=== PATIENT | male | born 2000 | race Two or more races ===

== ENCOUNTER 2019-02-19 00:48 | Emergency (ER) | payer OTHER, SELFPAY ==
[~2019-02-19] VITALS: Ht 170.2 cm; Wt 63.2 kg
[2019-02-19 00:48] VITALS: BP 128/68
--- NOTE | 2019-02-19 09:42 | REP ---
Clinical: Trauma. Technique: AP, lateral, bilateral oblique views of the right hand . Findings: The osseous structures and joint spaces are intact and normal. There is no evidence for acute fracture or dislocation. Surrounding soft tissues are unremarkable. No subcutaneous emphysema or radiodense foreign body. Impression: Normal right hand series. No acute fracture or dislocation. Electronically Signed by Segundo Hemphill MD 02/19/2019 09:33 A
== END 2019-02-19 04:49 | disposition left against medical advice (07) ==
LOC: M ED 00:48
DX: Z53.29 Procedure and treatment not carried out because of patient's decision for other reasons (principal)

== ENCOUNTER → 2019-02-19 | Outpatient (CLI) | payer SELFPAY ==
--- NOTE | 2019-02-19 15:14 | REP ---
RIGHT WRIST, FOUR VIEWS: There is no evidence of an acute fracture, dislocation or intrinsic bone disease. IMPRESSION: No fracture or dislocation. Electronically Signed by Carlos Macias MD 02/21/2019 10:20 A
--- NOTE | 2019-02-19 15:15 | REP ---
RIGHT HAND, FOUR VIEWS: There is no evidence of an acute fracture, dislocation or intrinsic bone disease. IMPRESSION: No fracture or dislocation. Electronically Signed by Carlos Macias MD 02/21/2019 10:20 A
== END ==
LOC: M LRY 13:37
PROVIDERS: ATTEND Physician Assistant
DX: M79.641 Pain in right hand (principal); M25.531 Pain in right wrist

== ENCOUNTER → 2019-10-23 | Outpatient (REF) | payer OTHER ==
[2019-10-23 12:08] LABS: HEMATOCRIT 46.3 % (42.0-52.0); HEMOGLOBIN 15.7 g/dl (13.5-17.5); MEAN CORPUSCULAR HEMOGLOBIN 30.4 pg (27.0-33.0); MEAN CORPUSCULAR HGB CONC 33.9 g/dl (32.0-36.5); MEAN CORPUSCULAR VOLUME 89.7 fl (80.0-96.0); PLATELET COUNT, AUTOMATED 286 10^3/uL (150-450); RED BLOOD COUNT 5.16 10^6/uL (4.30-6.10); WHITE BLOOD COUNT 8.9 10^3/uL (4.0-10.0)
[2019-10-23 12:27] LABS: BLOOD UREA NITROGEN 13 MG/DL (7-18); CALCIUM LEVEL 9.3 MG/DL (8.5-10.1); CARBON DIOXIDE LEVEL 30 MEQ/L (21-32); CHLORIDE LEVEL 103 MEQ/L (98-107); CHOLESTEROL LEVEL 124 MG/DL (<200); CHOLESTEROL RISK RATIO 3.542 (<5); CREATININE FOR GFR 1.13 MG/DL (0.70-1.30); FREE T4 1.08 NG/DL (0.76-1.46); GLOMERULAR FILTRATION RATE > 60.0 (>60); GLUCOSE, FASTING 82 MG/DL (70-100); HDL CHOLESTEROL 35 MG/DL (>40); LDL CHOLESTEROL 72 MG/DL (<100); NON-HDL-C 89 MG/DL; SODIUM LEVEL 139 MEQ/L (136-145); TRIGLYCERIDES LEVEL 86 MG/DL (<150)
[2019-10-23 13:02] LABS: HIV 1&2 SCREEN CENTAUR NEGATIVE (NEGATIVE)
[2019-10-23 13:31] LABS: CHLAMYDIA DNA AMPLIFICATION NEGATIVE (NEGATIVE); GC DNA AMPLIFICATION NEGATIVE (NEGATIVE)
[2019-10-23 14:26] LABS: HEMOGLOBIN A1c 5.5 %
== END ==
LOC: M SFHCPLAZ 10:16
PROVIDERS: ATTEND Family Medicine
DX: Z11.3 Encounter for screening for infections with a predominantly sexual mode of transmission (principal); Z13.1 Encounter for screening for diabetes mellitus; Z13.220 Encounter for screening for lipoid disorders; R07.89 Other chest pain

== ENCOUNTER 2020-11-24 12:48 | Emergency (ER) | payer OTHER ==
[~2020-11-24] VITALS: Ht 170.2 cm; Wt 63.8 kg
[2020-11-24] MEDS ORDERED: NS 1,000 ML IV SCH (13:00)
[2020-11-24 13:44] LABS: BASO % 0.3 % (0.0-1.0); EOS # 0.1 10^3/uL (0.0-0.5); EOS % 0.6 % (0.0-3.0); HEMATOCRIT 41.6 % (42.0-52.0); HEMOGLOBIN 13.8 g/dl (13.5-17.5); LYMPH # 2.3 10^3/uL (1.5-5.0); MEAN CORPUSCULAR HEMOGLOBIN 29.9 pg (27.0-33.0); MEAN CORPUSCULAR HGB CONC 33.2 g/dl (32.0-36.5); MEAN CORPUSCULAR VOLUME 90.2 fl (80.0-96.0); MONO # 0.8 10^3/uL (0.0-0.8); NEUTROPHILS # 8.7 10^3/uL (1.5-8.5); NEUTROPHILS % 72.8 % (36.0-66.0); PLATELET COUNT, AUTOMATED 260 10^3/uL (150-450); RED BLOOD COUNT 4.61 10^6/uL (4.30-6.10); WHITE BLOOD COUNT 11.9 10^3/uL (4.0-10.0)
[2020-11-24 13:49] LABS: VENOUS BASE EXCESS -3.2 (-2.0-2.0); VENOUS HCO3 21.6 MEQ/L (23.0-27.0); VENOUS PARTIAL PRESSURE CO2 38.2 mmHg (38.0-50.0); VENOUS PARTIAL PRESSURE O2 148.7 mmHg (30.0-50.0); VENOUS PH 7.371 UNITS (7.330-7.430); VENOUS STANDARD HCO3 21.9 MEQ/L; VENOUS TOTAL CO2 22.8 MEQ/L (24.0-28.0)
[2020-11-24 14:30] LABS: AMPHETAMINES LEVEL URINE NEGATIVE (NEGATIVE); BARBITURATES URINE NEGATIVE (NEGATIVE); BENZODIAZEPINES URINE POSITIVE (NEGATIVE); CANNABINOIDS URINE POSITIVE (NEGATIVE); COCAINE METABOLITE URINE NEGATIVE (NEGATIVE); METHADONE URINE NEGATIVE (NEGATIVE); OPIATES URINE NEGATIVE (NEGATIVE); PHENCYCLIDINE URINE NEGATIVE (NEGATIVE)
[2020-11-24 15:12] LABS: ACETAMINOPHEN LEVEL < 2.0 UG/ML (10.0-30.0); ALBUMIN 4.2 GM/DL (3.2-5.2); ALT/SGPT 20 U/L (12-78); BILIRUBIN,DIRECT 0.3 MG/DL (0.0-0.2); BILIRUBIN,TOTAL 1.2 MG/DL (0.2-1.0); BLOOD UREA NITROGEN 11 MG/DL (7-18); CALCIUM LEVEL 9.2 MG/DL (8.5-10.1); CARBON DIOXIDE LEVEL 25 MEQ/L (21-32); CHLORIDE LEVEL 106 MEQ/L (98-107); CPK CREATINE PHOSPHOKINASE 849 U/L (39-308); CREATININE FOR GFR 0.78 MG/DL (0.70-1.30); ETHYL ALCOHOL (ETHANOL) < 0.003 % (0.000-0.010); GLOMERULAR FILTRATION RATE > 60.0 (>60); GLUCOSE, FASTING 84 MG/DL (70-100); POTASSIUM SERUM 3.9 MEQ/L (3.5-5.1); SALICYLATE LEVEL < 1.7 MG/DL (5.0-30.0); SODIUM LEVEL 142 MEQ/L (136-145)
[2020-11-24 20:05] VITALS: BP 142/64
--- NOTE | 2020-11-25 07:55 | ECGEPIP ---
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
== END 2020-11-24 20:29 | disposition home or self-care (01) ==
LOC: EDBD 12:48 → M ED 12:48
DX: F19.10 Other psychoactive substance abuse, uncomplicated (principal); F17.200 Nicotine dependence, unspecified, uncomplicated

== ENCOUNTER 2021-04-18 03:34 | Emergency (ER) | payer OTHER ==
[~2021-04-18] VITALS: Ht 170.2 cm; Wt 70.9 kg
[2021-04-18] MEDS ORDERED: LIDOCAINE 2% 5ML JELLY UROJET TOP ONE (04:15)
[2021-04-18 04:21] LABS: BASO % 0.4 % (0.0-1.0); EOS % 0.4 % (0.0-3.0); HEMATOCRIT 49.1 % (42.0-52.0); HEMOGLOBIN 16.6 g/dl (13.5-17.5); LYMPH # 2.7 10^3/uL (1.5-5.0); LYMPH % 29.6 % (24.0-44.0); MEAN CORPUSCULAR HEMOGLOBIN 30.5 pg (27.0-33.0); MEAN CORPUSCULAR HGB CONC 33.8 g/dl (32.0-36.5); MEAN CORPUSCULAR VOLUME 90.1 fl (80.0-96.0); MONO # 0.5 10^3/uL (0.0-0.8); MONO % 5.4 % (2.0-8.0); NEUTROPHILS # 5.7 10^3/uL (1.5-8.5); NEUTROPHILS % 63.9 % (36.0-66.0); PLATELET COUNT, AUTOMATED 312 10^3/uL (150-450); RED BLOOD COUNT 5.45 10^6/uL (4.30-6.10)
[2021-04-18 04:50] LABS: OSMOLALITY SERUM 365 MOSM/KG (275-295)
[2021-04-18 04:58] LABS: AMPHETAMINES LEVEL URINE NEGATIVE (NEGATIVE); BARBITURATES URINE NEGATIVE (NEGATIVE); BENZODIAZEPINES URINE NEGATIVE (NEGATIVE); CANNABINOIDS URINE POSITIVE (NEGATIVE); COCAINE METABOLITE URINE NEGATIVE (NEGATIVE); METHADONE URINE NEGATIVE (NEGATIVE); OPIATES URINE NEGATIVE (NEGATIVE); PHENCYCLIDINE URINE NEGATIVE (NEGATIVE)
[2021-04-18 05:18] LABS: ACETAMINOPHEN LEVEL < 2.0 UG/ML (10.0-30.0); ALBUMIN 4.5 GM/DL (3.2-5.2); ALT/SGPT 28 U/L (12-78); BILIRUBIN,DIRECT 0.2 MG/DL (0.0-0.2); BILIRUBIN,TOTAL 0.9 MG/DL (0.2-1.0); BLOOD UREA NITROGEN 6 MG/DL (7-18); CALCIUM LEVEL 9.2 MG/DL (8.5-10.1); CARBON DIOXIDE LEVEL 28 MEQ/L (21-32); CHLORIDE LEVEL 110 MEQ/L (98-107); CK-MB VALUE MASS 3.9 NG/ML (<3.6); CPK CREATINE PHOSPHOKINASE 522 U/L (39-308); CREATININE FOR GFR 0.99 MG/DL (0.70-1.30); ETHYL ALCOHOL (ETHANOL) 0.265 % (0.000-0.010); GLOMERULAR FILTRATION RATE > 60.0 (>60); GLUCOSE, FASTING 88 MG/DL (70-100); MB/CK RELATIVE INDEX 0.75 (< OR =4); POTASSIUM SERUM 4.3 MEQ/L (3.5-5.1); SALICYLATE LEVEL < 1.7 MG/DL (5.0-30.0); SODIUM LEVEL 144 MEQ/L (136-145); TOTAL PROTEIN 7.9 GM/DL (6.4-8.2); TROPONIN I < 0.02 NG/ML (< 0.10)
--- NOTE | 2021-04-18 05:32 | REPVR ---
PROCEDURE INFORMATION: Exam: XR Chest Exam date and time: 04/18/2021 5:03 AM Age: 21 years old Clinical indication: Altered mental status TECHNIQUE: Imaging protocol: XR of the chest. Views: 1 view. COMPARISON: No relevant prior studies available. FINDINGS: Lungs: Unremarkable. No consolidation. Pleural spaces: Unremarkable. No pleural effusion. No pneumothorax. Heart/Mediastinum: Unremarkable. No cardiomegaly. Bones/joints: Unremarkable. IMPRESSION: No acute infiltrates. Electronically signed by: Magen Jorge On 04/18/2021 05:32:42 AM
[2021-04-18] MEDS ORDERED: NS IV ONE (05:45)
--- NOTE | 2021-04-18 05:51 | REPVR ---
PROCEDURE INFORMATION: Exam: CT Head Without Contrast Exam date and time: 04/18/2021 5:16 AM Age: 21 years old Clinical indication: Altered mental status/memory loss TECHNIQUE: Imaging protocol: Computed tomography of the head without contrast. Radiation optimization: All CT scans at this facility use at least one of these dose optimization techniques: automated exposure control; mA and/or kV adjustment per patient size (includes targeted exams where dose is matched to clinical indication); or iterative reconstruction. COMPARISON: No relevant prior studies available. FINDINGS: Brain: Normal. No hemorrhage. Unremarkable white matter. No mass effect. Cerebral ventricles: No ventriculomegaly. Paranasal sinuses: Visualized sinuses are unremarkable. No fluid levels. Mastoid air cells: Visualized mastoid air cells are well aerated. Bones/joints: Unremarkable. No acute fracture. Soft tissues: Unremarkable. IMPRESSION: No acute intracranial abnormality. Electronically signed by: Ike Naik On 04/18/2021 05:51:03 AM
--- NOTE | 2021-04-18 05:53 | REPVR ---
PROCEDURE INFORMATION: Exam: CT Cervical Spine Without Contrast Exam date and time: 04/18/2021 5:16 AM Age: 21 years old Clinical indication: Other: AMS; Additional info: Altered mental status TECHNIQUE: Imaging protocol: Computed tomography images of the cervical spine without contrast. Radiation optimization: All CT scans at this facility use at least one of these dose optimization techniques: automated exposure control; mA and/or kV adjustment per patient size (includes targeted exams where dose is matched to clinical indication); or iterative reconstruction. COMPARISON: CR PORTABLE CHEST X-RAY 04/18/2021 4:56 AM FINDINGS: Bones/joints: No acute fracture. Normal alignment. Discs/Spinal canal/Neural foramina: No significant disc protrusion. No severe spinal canal stenosis. No significant neural foraminal narrowing. Lungs: Lung apices are normal. Soft tissues: Unremarkable. IMPRESSION: No acute findings. Electronically signed by: Ike Naik On 04/18/2021 05:53:07 AM
--- NOTE | 2021-04-18 05:56 | REPVR ---
PROCEDURE INFORMATION: Exam: CT Maxillofacial Without Contrast Exam date and time: 04/18/2021 5:16 AM Age: 21 years old Clinical indication: Other: AMS w/ facial trauma; Additional info: Altered mental status, facial trauma TECHNIQUE: Imaging protocol: Computed tomography images of the face without contrast. Radiation optimization: All CT scans at this facility use at least one of these dose optimization techniques: automated exposure control; mA and/or kV adjustment per patient size (includes targeted exams where dose is matched to clinical indication); or iterative reconstruction. COMPARISON: No relevant prior studies available. FINDINGS: Orbital cavity: Orbits are normal. Globes are unremarkable. Bones/joints: No acute fracture. Paranasal sinuses: Minimal bilateral maxillary sinuses mucosal thickening seen. Soft tissues: Unremarkable. Dental: There is a large periapical lucency at the tip of the left 1st maxillary molar tooth. IMPRESSION: 1. No CT evidence of acute traumatic facial bone fracture. 2. Left 1st maxillary molar tooth periapical lucency suggestive of periodontal disease. Electronically signed by: Ike Naik On 04/18/2021 05:56:06 AM
[2021-04-18] MEDS ORDERED: ONDANSETRON 4MG/2ML VIAL IV ONE (09:25)
[2021-04-18 10:45] VITALS: BP 116/69
--- NOTE | 2021-04-19 16:42 | ECGEPIP ---
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
== END 2021-04-18 11:10 | disposition home or self-care (01) ==
LOC: M ED 03:34
DX: F10.129 Alcohol abuse with intoxication, unspecified (principal); F17.200 Nicotine dependence, unspecified, uncomplicated
CPT/HCPCS: 51701; 70450; 70486; 71045; 72125; 80048; 80076; 80143; 80307; 81001; 82077; 82140; 82550; 82553; 83605; 83930; 84443; 85025; 93005; 93041; 94760; 96361; 96374; 99285; J2405

== ENCOUNTER 2022-07-07 12:00 | Emergency (ER) | payer OTHER ==
[~2022-07-07] VITALS: Ht 170.2 cm; Wt 63.2 kg
[2022-07-07] MEDS ORDERED: ACETAMINOPHEN TAB 650MG DOSE (2X325MG) PO ONE (12:55)
[2022-07-07 13:18] LABS: BASO # 0.1 10^3/uL (0.0-0.2); BASO % 0.9 % (0.0-1.0); EOS # 0.1 10^3/uL (0.0-0.5); EOS % 1.1 % (0.0-3.0); HEMATOCRIT 39.9 % (42.0-52.0); HEMOGLOBIN 13.2 g/dl (13.5-17.5); LYMPH # 1.8 10^3/uL (1.5-5.0); LYMPH % 28.4 % (24.0-44.0); MEAN CORPUSCULAR HEMOGLOBIN 29.8 pg (27.0-33.0); MEAN CORPUSCULAR HGB CONC 33.1 g/dl (32.0-36.5); MEAN CORPUSCULAR VOLUME 90.1 fl (80.0-96.0); MONO # 0.7 10^3/uL (0.0-0.8); MONO % 10.1 % (2.0-8.0); NEUTROPHILS # 3.8 10^3/uL (1.5-8.5); NEUTROPHILS % 59.2 % (36.0-66.0); PLATELET COUNT, AUTOMATED 272 10^3/uL (150-450); RED BLOOD COUNT 4.43 10^6/uL (4.30-6.10); WHITE BLOOD COUNT 6.4 10^3/uL (4.0-10.0)
[2022-07-07] MEDS ORDERED: ISOVUE-370 76% 100ML VIAL As Ordered ONE (13:27)
[2022-07-07 14:31] VITALS: BP 116/55
== END 2022-07-07 14:41 | disposition home or self-care (01) ==
LOC: M ED 12:00
DX: S20.219A Contusion of unspecified front wall of thorax, initial encounter (principal); V43.62XA Car passenger injured in collision with other type car in traffic accident, initial encounter; F17.200 Nicotine dependence, unspecified, uncomplicated

== ENCOUNTER 2023-06-15 18:15 | Emergency (ER) | payer OTHER ==
[~2023-06-15] VITALS: Ht 167.6 cm; Wt 64.2 kg
[2023-06-15] MEDS ORDERED: LEXA1TAB (18:25)
[2023-06-15] MEDS ORDERED: BOOSTRIX VACCINE (TETANUS/DIPHTH/ACEL. PERTUSSIS) 0.5ML SYR IM.IMMUN ONE (18:40)
[2023-06-15] MEDS ORDERED: CEPHALEXIN 500 MG CAP PO ONE (19:30)
[2023-06-15] MEDS ORDERED: CEPH500C PO (19:32)
[2023-06-15 19:56] VITALS: BP 143/95; TEMP 97.6; O2SAT 98
== END 2023-06-15 19:57 | disposition home or self-care (01) ==
LOC: M ED 18:15
DX: S01.81XA Laceration without foreign body of other part of head, initial encounter (principal); S60.221A Contusion of right hand, initial encounter; Y04.0XXA Assault by unarmed brawl or fight, initial encounter; F41.9 Anxiety disorder, unspecified; F10.10 Alcohol abuse, uncomplicated; F32.A Depression, unspecified; Z79.899 Other long term (current) drug therapy

== ENCOUNTER → 2024-04-19 | Outpatient (CLI) | payer OTHER ==
[~2024-04-19] MED LIST: CEPH500C PO; LEXA1TAB
== END ==
LOC: M OUTALCOH 08:35
PROVIDERS: ATTEND Psychiatry & Neurology Psychiatry
DX: F12.20 Cannabis dependence, uncomplicated (principal); F10.10 Alcohol abuse, uncomplicated; F17.200 Nicotine dependence, unspecified, uncomplicated

== ENCOUNTER 2024-04-26 12:54 | Outpatient (RCR) | payer OTHER | END 2024-05-13 | LOC: M OUTALCOH 12:54 | PROVIDERS: ATTEND Psychiatry & Neurology Psychiatry | DX: F12.20 Cannabis dependence, uncomplicated (principal); F10.10 Alcohol abuse, uncomplicated; F17.200 Nicotine dependence, unspecified, uncomplicated ==